=== PATIENT | female | born 1995 | race Caucasian/White ===

== ENCOUNTER 2017-09-27 03:42 | Emergency (ER) | END 2017-09-27 05:30 | disposition home or self-care (01) ==

== ENCOUNTER 2017-09-29 15:39 | Emergency (ER) | END 2017-09-29 16:51 | disposition home or self-care (01) ==

== ENCOUNTER 2017-11-28 23:58 | Emergency (ER) | END 2017-11-29 04:15 | disposition home or self-care (01) ==

== ENCOUNTER 2017-12-01 10:43 | Emergency (ER) | END 2017-12-01 12:25 | disposition home or self-care (01) ==

== ENCOUNTER 2017-12-08 15:25 | Emergency (ER) | END 2017-12-08 17:25 | disposition home or self-care (01) ==